=== PATIENT | female | born 1960 | race American Indian/Alaskan Native ===

== ENCOUNTER 2020-11-26 07:05 | Observation (INO) | payer MEDICARE ==
[2020-11-26] MEDS ORDERED: SODIUM CHLORIDE 0.9% 1000 ML 1,000 ML ONE (07:10)
--- NOTE | 2020-11-26 07:25 | Emergency Department Report ---
ED Chest Pain HPI - General Chief Complaint: Chest Pain Stated Complaint: SVT Time Seen by Provider: 11/26/20 07:20 Source: patient, EMS Mode of arrival: Stretcher Limitations: No Limitations - History of Present Illness Initial Comments: This is a 60-year-old -[place]ian female presents to the emergency department via EMS from home with complaint of chest pain and palpitations that started about 2 AM this morning. Ultimately the patient was found to be in SVT and the patient says that she has a history of this but it has not occurred in a few years. The patient waited for about 3 hours hoping that the symptoms would go away but they did not so she called EMS. The patient has been told that she may need an ablation in the past. She has a past medical history of Crohn's disease. She did not take anything for symptoms prior to presentation. At the time of my examination the patient is tachycardic with a heart rate of about 180. She has a complaint of generalized chest discomfort at about an 8 out of 10. She denies any tobacco or illicit drug use. EMS was unable to obtain IV access and therefore the patient did not receive anything for her symptoms in route. - Related Data Home Medications Medication Instructions Recorded Confirmed Last Taken No Known Home Medications [No 11/26/20 11/26/20 Unknown Reported Home Medications] Allergies Allergy/AdvReac Type Severity Reaction Status Date / Time ciprofloxacin [From Cipro] Allergy Unknown Verified 11/26/20 07:06 Heart Score - HEART Score History: Slightly suspicious EKG: Non-specific Age: 45-65 Risk factors: No known risk factors Troponin: 1-3x normal limit HEART Score: 3 ED Review of Systems ROS: Stated complaint: SVT Other details as noted in HPI Comment: All other systems reviewed and negative Constitutional: denies: chills, fever Eyes: denies: eye pain, vision change ENT: denies: ear pain, throat pain Respiratory: denies: cough, wheezing Cardiovascular: chest pain, palpitations Gastrointestinal: denies: abdominal pain, vomiting Genitourinary: denies: dysuria, discharge Musculoskeletal: denies: back pain, arthralgia Skin: denies: rash, lesions Neurological: denies: headache, weakness ED Past Medical Hx - Past Medical History Previous Medical History?: Yes Additional medical history: heart disease - Social History Smoking Status: Never Smoker - Medications Home Medications: Home Medications Medication Instructions Recorded Confirmed Last Taken Type No Known Home Medications [No 11/26/20 11/26/20 Unknown History Reported Home Medications] ED Physical Exam - General Limitations: No Limitations ED Course Vital Signs 11/26/20 11/26/20 11/26/20 07:25 07:29 07:30 Pulse Rate 91 H 91 H Respiratory 18 18 Rate Blood Pressure Blood Pressure 104/70 [Right] O2 Sat by Pulse 99 Oximetry 11/26/20 11/26/20 11/26/20 07:31 07:45 07:55 Pulse Rate 90 91 H 82 Respiratory 10 L 21 Rate Blood Pressure Blood Pressure [Right] O2 Sat by Pulse 100 98 Oximetry 11/26/20 11/26/20 11/26/20 08:00 08:16 08:30 Pulse Rate 88 88 78 Respiratory 15 19 17 Rate Blood Pressure 109/71 115/75 Blood Pressure [Right] O2 Sat by Pulse 98 96 98 Oximetry 11/26/20 11/26/20 11/26/20 08:48 09:00 09:16 Pulse Rate 76 68 Respiratory 13 13 Rate Blood Pressure 115/75 Blood Pressure [Right] O2 Sat by Pulse 100 100 100 Oximetry 11/26/20 11/26/20 11/26/20 09:30 09:34 09:46 Pulse Rate 80 81 68 Respiratory 15 18 16 Rate Blood Pressure 117/81 Blood Pressure 110/77 [Right] O2 Sat by Pulse 100 97 100 Oximetry 11/26/20 11/26/20 11/26/20 10:00 10:15 11:34 Pulse Rate 73 Respiratory 18 Rate Blood Pressure 109/73 Blood Pressure 116/75 [Right] O2 Sat by Pulse 100 90 100 Oximetry 11/26/20 12:08 Pulse Rate 74 Respiratory 18 Rate Blood Pressure Blood Pressure 93/73 [Right] O2 Sat by Pulse 98 Oximetry - Consultations Consultation #1: 11/26/20 11:[address] angiography of the chest showing a suspected occluded left in nominate vein, I spoke with the vascular surgeon on-call, Dr. Andino. Dr. Andino's note is currently in the chart for further detail but it appears to be consistent with a chronic occlusion as there are multiple collateral veins. The patient should be started on aspirin. If the patient is being discharged then the patient can follow-up with [facility] outpatient. If the patient is being admitted, they are happy to consult. No emergent intervention necessary. - EJ/Peripheral Line Arm R Time Out Performed: Yes Indications: nurses unable to establis Skin Cleansed in Sterile Fashion: Yes Size: 20 Dressing Placed: Tegaderm, tape Patient Tolerated Procedure: well RAJENDRA score - Rajendra Score Age > 65: (1) Yes Aspirin use within the Past 7 Days: (0) No 3 or more CAD Risk Factors: (0) No 2 or more Angina events in past 24 hrs: (1) Yes Known CAD with more than 50% Stenosis: (0) No Elevated Cardiac Markers: (1) Yes ST Deviation Greater than 0.5mm: (0) No RAJENDRA Score: 3 ED Medical Decision Making - Lab Data Result diagrams: 11/26/20 07:30 11/26/20 07:30 - EKG Data -: EKG Interpreted by Me EKG shows normal: sinus rhythm (SVT), axis (Right axis deviation), intervals (Slightly prolonged QTC), QRS complexes (RVH), ST-T waves (Nonspecific ST-T waves) Rate: tachycardia (179 bpm) - EKG Data When compared to previous EKG there are: previous EKG unavailable 11/26/20 07:25 EKG status post adenosine was also interpreted by me: Sinus rhythm at a rate of 93 bpm, right axis deviation, right bundle branch block, left posterior fascicular block. Normal intervals. - Radiology Data Radiology results: report reviewed, image reviewed interpreted by me: Chest x-ray does not show any acute process. There are no pleural effusions, obvious pneumonia and there is no pneumothorax. No significant cardiomegaly.CT angio chest INDICATION: CP, palpitations, SVT, elevated dimer. TECHNIQUE: All CT scans at this location are performed using CT dose reduction for ALARA by means of automated exposure control. 3 plane MIP and/or 3-D reconstructions were produced. COMPARISON: None available. FINDINGS: No mediastinal, hilar or axillary adenopathy. Uppermost abdomen is unremarkable. Port-A-Cath is in the right subclavian vein and SVC. The left innominate vein appears to be occluded, with numerous collaterals throughout the mediastinum and left chest wall. (Contrast injection was in the left arm) No pleural fluid. Mild bibasilar atelectasis but no acute pulmonary disease. No evidence of pulmonary embolus. IMPRESSION: 1. Negative for pulmonary embolus. 2. Suspect occlusion of the left innominate vein. CT venogram may be helpful to confirm. - Medical Decision Making This patient initially presented this morning in SVT with a heart rate of about 180. She converted to a sinus rhythm after given a 6 mg dose of adenosine. Even after the patient converted and had a normal heart rate, she still complained of some left-sided chest pain. It improved with IV analgesia but then would come back when the medication wore off. The EKG done after she converted from SVT still did not have any morphology consistent with ST elevation myocardial infarction. First troponin was negative. D-dimer level was elevated and therefore the patient had a CT angiography of the chest that did not show any evidence of pulmonary embolism, but did have an incidental finding of left innominate vein occlusion. As per the consultation section, vascular surgery was contacted and this appears to be a chronic finding. They were happy to consult if the patient is admitted, otherwise the patient can follow-up outpatient with [facility] [place]. The patient second troponin came back slightly elevated at 0.037. She will be admitted to the hospital for further evaluation and a cardiology consultation. It sounds like the patient will have a stress test in the morning. The patient was accepted for admission by the hospitalist, Dr. Duarte. Critical Care Time: Yes Critical care time in (mins) excluding proc time.: 35 Critical care attestation.: If time is entered above; I have spent that time in minutes in the direct care of this critically ill patient, excluding procedure time. Critical care time was spent on this patient in doing her initial evaluation, multiple reevaluations, ordering and interpretation of labs and imaging, adenosine for SVT, discussion with the vascular surgery and cardiology services, multiple discussions with the patient. Critical Care Time: 35 minutes ED Disposition Clinical Impression: SVT (supraventricular tachycardia), Acute chest pain, Elevated troponin, Brachiocephalic vein obstruction with collaterals Disposition: OP ADMIT IP TO THIS HOSP Is pt being admited?: Yes Condition: Serious Instructions: Chest Pain (ED) Referrals: VIKRAM LO MD [Staff Physician] - 7 Days ([place] office, 12/10/2020 @ 3:00PM) YISSEL OCONNOR MD [Referring] - 3-5 Days RAJIV ANDINO MD [Staff Physician] - 7-10 days (Follow up for chronic brachiocephalic vein occlusion)
[2020-11-26] MEDS ORDERED: MORPHINE 4 MG/1 ML INJ IV ONE ×2 (07:28→10:58)
[2020-11-26] MEDS ORDERED: ONDANSETRON 4 MG/2 ML INJ IV ONE (07:28)
[2020-11-26] MEDS ORDERED: SODIUM CHLORIDE 0.9% 1000 ML 1,000 ML IV ONE (07:29)
[2020-11-26] MEDS ORDERED: ADENOSINE 6 MG/2 ML INJ IV ONE ×2 (07:39→07:40)
[2020-11-26 07:42] LABS: Basophils % (Auto) 0.7 % (0.0-1.8); Eosinophils # (Auto) 0.1 K/mm3 (0.0-0.4); Eosinophils % (Auto) 2.2 % (0.0-4.3); Hemoglobin 10.7 gm/dl (10.1-14.3); Lymphocytes # (Auto) 1.1 K/mm3 (1.2-5.4); Lymphocytes % (Auto) 20.4 % (13.4-35.0); Mean Corpuscular HGB Conc 33 % (30-34); Mean Corpuscular Volume 80 fl (79-97); Monocytes # (Auto) 0.5 K/mm3 (0.0-0.8); Monocytes % (Auto) 8.9 % (0.0-7.3); Platelet Count 214 K/mm3 (140-440); Red Blood Count 4.11 M/mm3 (3.65-5.03); Red Cell Distribution Width 16.5 % (13.2-15.2)
[2020-11-26 08:00] LABS: Alanine Aminotransferase 11 units/L (7-56); Albumin 3.3 g/dL (3.9-5); BUN/Creatinine Ratio 16; Blood Urea Nitrogen 13 mg/dL (7-17); Calcium 8.4 mg/dL (8.4-10.2); Hemolysis Index 4
[2020-11-26] MEDS ORDERED: ADENOSINE 6 MG/2 ML INJ IV SCH ×2 (08:00)
--- NOTE | 2020-11-26 09:15 | XRay Report ---
CHEST 1 VIEW 11/26/2020 8:08 AM INDICATION / CLINICAL INFORMATION: CP. COMPARISON: None available. FINDINGS: SUPPORT DEVICES: Right Port-A-Cath in satisfactory position HEART / MEDIASTINUM: No significant abnormality. LUNGS / PLEURA: Mild increased interstitial process in the right perihilar region. No pneumothorax. ADDITIONAL FINDINGS: No significant additional findings. IMPRESSION: 1. Right Port-A-Cath in satisfactory in position. Mild increased perihilar prominence on the right ma y be vasculature. Please see CT images of the chest which has been ordered. Signer Name: Lucio Ojeda MD Signed: 11/26/2020 9:11 AM Workstation Name: [id number]
--- NOTE | 2020-11-26 09:25 | Cat Scan Report ---
CT angio chest INDICATION: CP, palpitations, SVT, elevated dimer. TECHNIQUE: All CT scans at this location are performed using CT dose reduction for ALARA by means of automated e xposure control. 3 plane MIP and/or 3-D reconstructions were produced. COMPARISON: None available. FINDINGS: No mediastinal, hilar or axillary adenopathy. Uppermost abdomen is unremarkable. Port-A-Cath is in the right subclavian vein and SVC. The left innominate vein appears to be occluded, with numerous collaterals throughout the mediastinum and left chest wall. (Contrast injection was in the left arm) No pleural fluid. Mild bibasilar atelectasis but no acute pulmonary disease. No evidence of pulmonary embolus. IMPRESSION: 1. Negative for pulmonary embolus. 2. Suspect occlusion of the left innominate vein. CT venogram may be helpful to confirm. Signer Name: Dionisio Caba MD Signed: 11/26/2020 9:21 AM Workstation Name: [id number]
--- NOTE | 2020-11-26 11:26 | Event Note ---
Date: 11/26/20 60 year old female with Crohn's disease who had SVT requiring adenosine. CT PA ordered to exclude pulmonary embolism. 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 These are chronic findings. No head and neck swelling, or severe headache. No symptoms of SVC syndrom. Patient can followup with [facility] at [phone] and be placed on an aspirin in the interim.
[2020-11-26] MEDS ORDERED: ASPIRIN 81 MG TAB CHEW PO ONE (11:54)
[2020-11-26 12:25] LABS: Chol/HDL Ratio 2.41 %
--- NOTE | 2020-11-26 13:09 | Consultation ---
History of Present Illness Consult date: 11/26/20 Requesting physician: PATRICIA MERIDA Consult reason: chest pain, tachycardia History of present illness: The pt is a 60YO female with a past medical history of SVT and Crohn's disease. She is previously unknown to our practice. She presented with c/o palpitations which awoke her from sleep around 2AM this morning. She waited for about 3 hours at home hoping her symptoms would resolve but ultimately called EMS. She was f ound to be in SVT HR 180s. Following arrival to ED, she was given adenosine 6mg x 1 dose and was successfully converted to NSR. She remains in NSR on evaluation with HR 60s. Pt states that she developed chest pain after the SVT was resolved. She describes her chest pain as a left-sided aching pain which radiates into her left shoulder. Pt denies any SOB, n/v, diaphoresis, dizziness or syncope. Of note, pt reports h/o paroxysmal SVT which was initially diagnosed 7-8 years ago. Pt states that she has not had any regular follow up with a advance scout and does not take any medications at home. She states that she was hospitalized in [facility] 4 years ago and was recommended SVT ablation at that time. Her last know occurrence of SVT was 2 years ago in [place], she is now permanently relocated to [place]. Past History Past Medical History: other (as per HPI) Medications and Allergies Allergies Allergy/AdvReac Type Severity Reaction Status Date / Time ciprofloxacin [From Cipro] Allergy Unknown Verified 11/26/20 07:06 Home Medications Medication Instructions Recorded Confirmed Last Taken Type No Known Home Medications [No 11/26/20 11/26/20 Unknown History Reported Home Medications] Review of Systems Constitutional: no weight loss, no weight gain, no fever, no chills, no sweats Ears, nose, mouth and throat: no ear pain, no nose pain, no sinus pressure, no sinus pain Cardiovascular: chest pain, palpitations, rapid/irregular heart beat, no orthopnea, no edema, no syncope, no lightheadedness, no shortness of breath, no dyspnea on exertion, no high blood pressure, no leg edema Respiratory: no cough, no shortness of breath, no dyspnea on exertion, no congestion, no wheezing, no pain on inspiration Gastrointestinal: no abdominal pain, no nausea, no vomiting, no diarrhea, no constipation, no change in bowel habits Genitourinary Female: no pelvic pain, no flank pain, no dysuria, no urinary frequency, no urgency Musculoskeletal: no neck stiffness, no neck pain, no shooting arm pain, no arm numbness/tingling, no low back pain, no shooting leg pain Integumentary: no rash, no pruritis, no redness, no sores, no wounds Neurological: no head injury, no paralysis, no weakness, no parathesias, no numbness, no tingling, no seizures, no syncope Psychiatric: no anxiety Endocrine: no cold intolerance, no heat intolerance Hematologic/Lymphatic: no easy bruising Allergic/Immunologic: no urticaria Physical Examination Vital Signs Pulse 91 H 11/26/20 07:25 General appearance: no acute distress HEENT: Positive: PERRL, Normocephaly, Mucus Membranes Moist Neck: Positive: neck supple, trachea midline Cardiac: Positive: Reg Rate and Rhythm, S1/S2 Lungs: Positive: clear to auscultation Neuro: Positive: Grossly Intact Abdomen: Negative: Tender Skin: Negative: Rash Musculoskeletal: No Pain Extremities: Absent: edema Results 11/26/20 07:30 11/26/20 07:30 Cardiac Enzymes 11/26/20 Range/Units 07:30 AST 16 (5-40) units/L Lipids 11/26/20 Range/Units 10:55 Triglycerides 141 (2-149) mg/dL Cholesterol 128 (50-199) mg/dL HDL Cholesterol 53 (40-59) mg/dL Cholesterol/HDL Ratio 2.41 % CBC 11/26/20 Range/Units 07:30 WBC 5.3 (4.5-11.0) K/mm3 RBC 4.11 (3.65-5.03) M/mm3 Hgb 10.7 (10.1-14.3) gm/dl Hct 33.0 (30.3-42.9) % Plt Count 214 (140-440) K/mm3 Lymph # (Auto) 1.1 L (1.2-5.4) K/mm3 [place] # (Auto) 0.5 (0.0-0.8) K/mm3 Eos # (Auto) 0.1 (0.0-0.4) K/mm3 Baso # (Auto) 0.0 (0.0-0.1) K/mm3 Comprehensive Metabolic Panel 11/26/20 Range/Units 07:30 Sodium 140 (137-145) mmol/L Potassium 3.6 (3.6-5.0) mmol/L Chloride 108.9 H (98-107) mmol/L Carbon Dioxide 23 (22-30) mmol/L BUN 13 (7-17) mg/dL Creatinine 0.8 (0.6-1.2) mg/dL Glucose 110 H (65-100) mg/dL Calcium 8.4 (8.4-10.2) mg/dL AST 16 (5-40) units/L ALT 11 (7-56) units/L Alkaline Phosphatase 95 (35-129) units/L Total Protein 6.5 (6.3-8.2) g/dL Albumin 3.3 L (3.9-5) g/dL - Imaging and Cardiology Echo: pending EKG: report reviewed, image reviewed EKG interpretations - Telemetry EKG Rhythm: Sinus Rhythm Additional Comments: SVT Assessment and Plan Initiate PO lopressor in setting of paroxysmal SVT. Minimal troponin elevation x 1 set currently appears nonspecific and chest pain appears atypical. Cont to trend Ghulam and f/u ECG in AM. Obtain tte. Plan for lexiscan MPI stress test in AM. NPO after MN. Chest CTA negative for PE, incidental vasculature finding noted, vascular recs noted. The patient has been seen in conjunction with Dr. Wade who agrees with the assessment and plan of care. - Patient Problems (1) Paroxysmal SVT (supraventricular tachycardia) Current Visit: Yes Status: Chronic (2) Acute chest pain Current Visit: Yes Status: Acute (3) Elevated troponin Current Visit: Yes Status: Acute (4) Crohn's disease Current Visit: Yes Status: Chronic
[2020-11-26] MEDS ORDERED: METOPROLOL TARTRATE 50 MG TAB PO SCH (22:00)
--- NOTE | 2020-11-26 23:32 | History and Physical Report ---
History of Present Illness Date of examination: 11/26/20 Date of admission: 11/26/20 12:01 Chief complaint: Chest pain since a.m. History of present illness: 51-year-old -[place] female presents to the emergency room with complaints of chest pain and palpitations that started around 2 AM this morning. Patient thought it to resolve and did not call EMS for 3 hours. She called EMS around 5:30 AM. EMS gave her diagnosis and will palpitations diarrhea. As per EMS her heart rate was around 180 and after 6 mg of diagnosing her heart rate became normal. She also has a history of Crohn's disease which is not active. Patient also has chest pain. No diaphoresis no shortness of breath no orthopnea no radiation. Fast heart rate was a precipitating factor for the chest pain. Serial chest x-rays in the past 3 but she did not get ablation and recently [place] to [place] to settle down. Heart Score - HEART Score History: Slightly suspicious EKG: Non-specific Age: 45-65 Risk factors: No known risk factors Troponin: 1-3x normal limit HEART Score: 3 - Past Medical History Previous Medical History?: Yes Recurrent SVT Surgical history None - Social History Smoking Status: Never Smoker Family history Htn - Medications Home Medications: Home Medications Medication Instructions Recorded Confirmed Last Taken Type No Known Home Medications [No 11/26/20 11/26/20 Unknown History Reported Home Medications] Review of Systems ROS: Stated complaint: SVT Other details as noted in HPI Comment: All other systems reviewed and negative Constitutional: denies: chills, fever Eyes: denies: eye pain, vision change ENT: denies: ear pain, throat pain Respiratory: denies: cough, wheezing Cardiovascular: chest pain, palpitations Gastrointestinal: denies: abdominal pain, vomiting Genitourinary: denies: dysuria, discharge Musculoskeletal: denies: back pain, arthralgia Skin: denies: rash, lesions Neurological: denies: headache, weakness Past History Past Medical History: other (as per HPI) Medications and Allergies Allergies Allergy/AdvReac Type Severity Reaction Status Date / Time ciprofloxacin [From Cipro] Allergy Unknown Verified 11/26/20 07:06 Home Medications Medication Instructions Recorded Confirmed Last Taken Type No Known Home Medications [No 11/26/20 11/26/20 Unknown History Reported Home Medications] Active Meds: Active Medications Metoprolol Tartrate (Metoprolol Tartrate 50 Mg Tab) 25 mg PO BID FERNANDO Last Admin: 11/26/20 21:41 Dose: 25 mg Documented by: Exam - Constitutional Vitals: Temp Pulse Resp BP Pulse Ox 98.4 F 76 18 108/60 99 11/26/20 20:10 11/26/20 21:41 11/26/20 20:10 11/26/20 21:41 11/26/20 20:10 General appearance: Present: no acute distress, well-nourished - EENT Eyes: Present: PERRL ENT: hearing intact, clear oral mucosa - Neck Neck: Present: supple, normal ROM - Respiratory Respiratory effort: normal Respiratory: bilateral: CTA - Cardiovascular Heart rate: 75 Rhythm: regular Heart Sounds: Present: S1 & S2. Absent: rub, click - Extremities Extremities: pulses symmetrical, No edema Peripheral Pulses: within normal limits - Abdominal General gastrointestinal: Present: soft, non-tender, non-distended, normal bowel sounds Female genitourinary: Present: normal - Integumentary Integumentary: Present: clear, warm, dry - Musculoskeletal Musculoskeletal: gait normal, strength equal bilaterally - Psychiatric Psychiatric: appropriate mood/affect, intact judgment & insight - Neurologic Neurologic: CNII-XII intact, moves all extremities HEART Score - HEART Score EKG: Non-specific Age: 45-65 Risk factors: No known risk factors Troponin: Troponin T 0.031 ng/mL (0.00-0.029) H 11/26/20 13:42 Troponin: 1-3x normal limit Results - Labs CBC & Chem 7: 11/26/20 07:30 11/26/20 07:30 Labs: Laboratory Last Values WBC 5.3 K/mm3 (4.5-11.0) 11/26/20 07:30 RBC 4.11 M/mm3 (3.65-5.03) 11/26/20 07:30 Hgb 10.7 gm/dl (10.1-14.3) 11/26/20 07:30 Hct 33.0 % (30.3-42.9) 11/26/20 07:30 MCV 80 fl (79-97) 11/26/20 07:30 MCH 26 pg (28-32) L 11/26/20 07:30 MCHC 33 % (30-34) 11/26/20 07:30 RDW 16.5 % (13.2-15.2) H 11/26/20 07:30 Plt Count 214 K/mm3 (140-440) 11/26/20 07:30 Lymph % (Auto) 20.4 % (13.4-35.0) 11/26/20 07:30 [place] % (Auto) 8.9 % (0.0-7.3) H 11/26/20 07:30 Eos % (Auto) 2.2 % (0.0-4.3) 11/26/20 07:30 Baso % (Auto) 0.7 % (0.0-1.8) 11/26/20 07:30 Lymph # (Auto) 1.1 K/mm3 (1.2-5.4) L 11/26/20 07:30 [place] # (Auto) 0.5 K/mm3 (0.0-0.8) 11/26/20 07:30 Eos # (Auto) 0.1 K/mm3 (0.0-0.4) 11/26/20 07:30 Baso # (Auto) 0.0 K/mm3 (0.0-0.1) 11/26/20 07:30 Seg Neutrophils % 67.8 % (40.0-70.0) 11/26/20 07:30 Seg Neutrophils # 3.6 K/mm3 (1.8-7.7) 11/26/20 07:30 D-Dimer 543.5 ng/mlDDU (0-234) H 11/26/20 07:30 Sodium 140 mmol/L (137-145) 11/26/20 07:30 Potassium 3.6 mmol/L (3.6-5.0) 11/26/20 07:30 Chloride 108.9 mmol/L (98-107) H 11/26/20 07:30 Carbon Dioxide 23 mmol/L (22-30) 11/26/20 07:30 Anion Gap 12 mmol/L 11/26/20 07:30 BUN 13 mg/dL (7-17) 11/26/20 07:30 Creatinine 0.8 mg/dL (0.6-1.2) 11/26/20 07:30 Estimated GFR > 60 ml/min 11/26/20 07:30 BUN/Creatinine Ratio 16 % 11/26/20 07:30 Glucose 110 mg/dL (65-100) H 11/26/20 07:30 Calcium 8.4 mg/dL (8.4-10.2) 11/26/20 07:30 Total Bilirubin 0.30 mg/dL (0.1-1.2) 11/26/20 07:30 AST 16 units/L (5-40) 11/26/20 07:30 ALT 11 units/L (7-56) 11/26/20 07:30 Alkaline Phosphatase 95 units/L (35-129) 11/26/20 07:30 Troponin T 0.031 ng/mL (0.00-0.029) H 11/26/20 13:42 Total Protein 6.5 g/dL (6.3-8.2) 11/26/20 07:30 Albumin 3.3 g/dL (3.9-5) L 11/26/20 07:30 Albumin/Globulin Ratio 1.0 % 11/26/20 07:30 Triglycerides 141 mg/dL (2-149) 11/26/20 10:55 Cholesterol 128 mg/dL (50-199) 11/26/20 10:55 LDL Cholesterol Direct 68 mg/dL (50-130) 11/26/20 10:55 HDL Cholesterol 53 mg/dL (40-59) 11/26/20 10:55 Cholesterol/HDL Ratio 2.41 % 11/26/20 10:55 TSH 0.836 mlU/mL (0.270-4.200) 11/26/20 07:30 Short CBC 11/26/20 Range/Units 07:30 WBC 5.3 (4.5-11.0) K/mm3 Hgb 10.7 (10.1-14.3) gm/dl Hct 33.0 (30.3-42.9) % Plt Count 214 (140-440) K/mm3 BMP 11/26/20 07:30 Sodium 140 Potassium 3.6 Chloride 108.9 H Carbon Dioxide 23 BUN 13 Creatinine 0.8 Glucose 110 H Calcium 8.4 Cardiac Enzymes 11/26/20 11/26/20 11/26/20 Range/Units 07:30 10:55 13:42 Troponin T < 0.010 0.037 H D 0.031 H (0.00-0.029) ng/mL Liver Function 11/26/20 Range/Units 07:30 Total Bilirubin 0.30 (0.1-1.2) mg/dL AST 16 (5-40) units/L ALT 11 (7-56) units/L Alkaline Phosphatase 95 (35-129) units/L Albumin 3.3 L (3.9-5) g/dL - Imaging and Cardiology EKG: report reviewed (Normal sinus rhythm heart rate of 74/min, previous strip shows SVT) Bansal/IV: Voiding Method Toilet Assessment and Plan Advance Directives: Yes - Patient Problems (1) Acute coronary syndrome Current Visit: Yes Status: Acute Plan to address problem: Serial troponins and Lexiscan in the morning Cardiology consult also requested (2) SVT (supraventricular tachycardia) Current Visit: Yes Status: Acute Plan to address problem: Resolved with admission Patient started on low-dose diltiazem Cardiology consult for possible ablation down the road as an outpatient EPS mapping for aberrant conduction pathways (3) 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
[2020-11-26] MEDS ORDERED: ONDANSETRON 4 MG/2 ML INJ IV PRN (23:33)
[2020-11-26] MEDS ORDERED: ACETAMINOPHEN 325 MG TAB PO PRN (23:33)
[2020-11-26] MEDS ORDERED: METOCLOPRAMIDE 10 MG/2 ML INJ IV PRN (23:33)
[2020-11-26] MEDS ORDERED: oxyCODONE /ACETAMINOPHEN 5-325MG TAB PO PRN (23:33)
[2020-11-27] MEDS: HYDROmorphone 1 MG/1 ML INJ IV PRN ×2 (00:38→10:26)
[2020-11-27] MEDS ORDERED: REGADENOSON 0.4 MG/5 ML INJ IV ONE (06:55)
--- NOTE | 2020-11-27 08:01 | Progress Note ---
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 WYLIE as an outpatient -Disposition as per cardiology Discussed with Dr. Wade and he said patient can be discharged home on Toprol 25 mg and have follow-up with Dr. Avilez as an outpatient. History Interval history: Patient was seen and evaluated this morning Patient's chest pain resolved No palpitation Hospitalist Physical - Physical exam Narrative exam: Not in cardiopulmonary distress. The patient appeared well nourished and normally developed. Vital signs as documented. Head exam is unremarkable. No scleral icterus . Neck is without jugular venous distension, thyromegaly, or carotid bruits. Lungs are clear to auscultation. Cardiac exam reveals regular rate and Rhythm. Abdominal exam reveals normal bowel sounds, nontender, no organomegaly. Extremities are nonedematous and both femoral and pedal pulses are normal. NEWSPAPER STUFFER: Alert and oriented 3. No focal weakness. - Constitutional Vitals: Temp Pulse Resp BP Pulse Ox 97.9 F 57 L 17 104/56 98 11/27/20 04:17 11/27/20 04:17 11/27/20 04:17 11/27/20 04:17 11/27/20 04:17 General appearance: Present: no acute distress, well-nourished HEART Score - HEART Score EKG: Non-specific Age: 45-65 Risk factors: No known risk factors Troponin: Troponin T 0.031 ng/mL (0.00-0.029) H 11/26/20 13:42 Troponin: 1-3x normal limit Results - Labs CBC & Chem 7: 11/26/20 07:30 11/26/20 07:30 Labs: Laboratory Last Values WBC 5.3 K/mm3 (4.5-11.0) 11/26/20 07:30 RBC 4.11 M/mm3 (3.65-5.03) 11/26/20 07:30 Hgb 10.7 gm/dl (10.1-14.3) 11/26/20 07:30 Hct 33.0 % (30.3-42.9) 11/26/20 07:30 MCV 80 fl (79-97) 11/26/20 07:30 MCH 26 pg (28-32) L 11/26/20 07:30 MCHC 33 % (30-34) 11/26/20 07:30 RDW 16.5 % (13.2-15.2) H 11/26/20 07:30 Plt Count 214 K/mm3 (140-440) 11/26/20 07:30 Lymph % (Auto) 20.4 % (13.4-35.0) 11/26/20 07:30 Gillespie % (Auto) 8.9 % (0.0-7.3) H 11/26/20 07:30 Eos % (Auto) 2.2 % (0.0-4.3) 11/26/20 07:30 Baso % (Auto) 0.7 % (0.0-1.8) 11/26/20 07:30 Lymph # (Auto) 1.1 K/mm3 (1.2-5.4) L 11/26/20 07:30 Gillespie # (Auto) 0.5 K/mm3 (0.0-0.8) 11/26/20 07:30 Eos # (Auto) 0.1 K/mm3 (0.0-0.4) 11/26/20 07:30 Baso # (Auto) 0.0 K/mm3 (0.0-0.1) 11/26/20 07:30 Seg Neutrophils % 67.8 % (40.0-70.0) 11/26/20 07:30 Seg Neutrophils # 3.6 K/mm3 (1.8-7.7) 11/26/20 07:30 D-Dimer 543.5 ng/mlDDU (0-234) H 11/26/20 07:30 Sodium 140 mmol/L (137-145) 11/26/20 07:30 Potassium 3.6 mmol/L (3.6-5.0) 11/26/20 07:30 Chloride 108.9 mmol/L (98-107) H 11/26/20 07:30 Carbon Dioxide 23 mmol/L (22-30) 11/26/20 07:30 Anion Gap 12 mmol/L 11/26/20 07:30 BUN 13 mg/dL (7-17) 11/26/20 07:30 Creatinine 0.8 mg/dL (0.6-1.2) 11/26/20 07:30 Estimated GFR > 60 ml/min 11/26/20 07:30 BUN/Creatinine Ratio 16 % 11/26/20 07:30 Glucose 110 mg/dL (65-100) H 11/26/20 07:30 Hemoglobin A1c 5.4 % (4-6) 11/27/20 05:45 Calcium 8.4 mg/dL (8.4-10.2) 11/26/20 07:30 Total Bilirubin 0.30 mg/dL (0.1-1.2) 11/26/20 07:30 AST 16 units/L (5-40) 11/26/20 07:30 ALT 11 units/L (7-56) 11/26/20 07:30 Alkaline Phosphatase 95 units/L (35-129) 11/26/20 07:30 Troponin T 0.031 ng/mL (0.00-0.029) H 11/26/20 13:42 Total Protein 6.5 g/dL (6.3-8.2) 11/26/20 07:30 Albumin 3.3 g/dL (3.9-5) L 11/26/20 07:30 Albumin/Globulin Ratio 1.0 % 11/26/20 07:30 Triglycerides 141 mg/dL (2-149) 11/26/20 10:55 Cholesterol 128 mg/dL (50-199) 11/26/20 10:55 LDL Cholesterol Direct 68 mg/dL (50-130) 11/26/20 10:55 HDL Cholesterol 53 mg/dL (40-59) 11/26/20 10:55 Cholesterol/HDL Ratio 2.41 % 11/26/20 10:55 TSH 0.836 mlU/mL (0.270-4.200) 11/26/20 07:30 Bansal/IV: Voiding Method Toilet Active Medications - Current Medications Current Medications: Generic Name Dose Route Start Last Admin Trade Name Freq PRN Reason Stop Dose Admin Acetaminophen 650 mg 11/26/20 23:33 Acetaminophen 325 Mg Tab PO Q4H PRN Pain MILD(1-3)/Fever >100.5/VALIENTE Enoxaparin Sodium 40 mg 11/27/20 22:00 Enoxaparin 40 Mg/0.4 Ml Inj SUB-Q QDAY@2200 [facility] Protocol Famotidine 20 mg 11/27/20 10:00 Famotidine 20 Mg Tab PO BID [facility] Hydromorphone HCl 0.5 mg 11/26/20 23:33 11/27/20 00:38 Hydromorphone 1 Mg/1 Ml Inj IV 0.5 mg Q3H PRN Administration Pain , Severe (7-10) Metoclopramide HCl 10 mg 11/26/20 23:33 Metoclopramide 10 Mg/2 Ml Inj IV Q6H PRN Nausea And Vomiting Metoprolol Tartrate 25 mg 11/27/20 10:00 Metoprolol Tartrate 25 Mg Tab PO BID [facility] Ondansetron HCl 4 mg 11/26/20 23:33 Ondansetron 4 Mg/2 Ml Inj IV Q8H PRN Nausea And Vomiting Oxycodone/Acetaminophen 1 tab 11/26/20 23:33 Oxycodone /Acetaminophen 5-325mg Tab PO Q6H PRN Pain, Moderate (4-6) Sodium Chloride 10 ml 11/27/20 10:00 Sodium Chloride 0.9% 10 Ml Flush Syringe IV BID [facility] Sodium Chloride 10 ml 11/26/20 23:33 Sodium Chloride 0.9% 10 Ml Flush Syringe IV PRN PRN LINE FLUSH
[2020-11-27] MEDS ORDERED: FAMOTIDINE 20 MG TAB PO SCH (10:00)
[2020-11-27] MEDS ORDERED: METOPROLOL TARTRATE 25 MG TAB PO SCH (10:00)
--- NOTE | 2020-11-27 10:11 | Discharge Summary ---
Providers - Providers Date of Admission: 11/26/20 12:01 Date of discharge: 11/27/20 Attending physician: ISAAC MAGANA MD 11/26/20 11:53 Consult to Cardiology [CONS] Routine Consulting Provider: ARIN WADE Reason For Exam: chest pain, SVT, elevated troponin Hospitalization Reason for admission: palpitation, paroxysmal SVT Condition: Serious Hospital course: History of present illness: 51-year-old -[place] female presents to the emergency room with complaints of chest pain and palpitations that started around 2 AM this morning. Patient thought it to resolve and did not call EMS for 3 hours. She called EMS around 5:30 AM. EMS gave her diagnosis and will palpitations diarrhea. As per EMS her heart rate was around 180 and after 6 mg of diagnosing her heart rate became normal. She also has a history of Crohn's disease which is not active. Patient also has chest pain. No diaphoresis no shortness of breath no orthopnea no radiation. Fast heart rate was a precipitating factor for the chest pain. Serial chest x-rays in the past 3 but she did not get ablation and recently moved to [place] to settle down. 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 WYLIE as an outpatient -Disposition as per cardiology Discussed with Dr. Wade and he said patient can be discharged home on Toprol 25 mg and have follow-up with Dr. Lo as an outpatient. Disposition: DC-01 TO HOME OR SELFCARE Time spent for discharge: 27 minutes - Discharge Diagnoses (1) Acute chest pain Status: Resolved (2) Brachiocephalic vein obstruction with collaterals Status: Chronic (3) Crohn's disease Status: Chronic Qualifiers: Gastrointestinal tract location: unspecified location (4) Paroxysmal SVT (supraventricular tachycardia) Status: Chronic Core Measure Documentation - Palliative Care Palliative Care/ Comfort Measures: Not Applicable - Core Measures Any of the following diagnoses?: none Exam - Physical Exam Narrative exam: Not in cardiopulmonary distress. The patient appeared well nourished and normally developed. Vital signs as documented. Head exam is unremarkable. No scleral icterus . Neck is without jugular venous distension, thyromegaly, or carotid bruits. Lungs are clear to auscultation. Cardiac exam reveals regular rate and Rhythm. Abdominal exam reveals normal bowel sounds, nontender, no organomegaly. Extremities are nonedematous and both femoral and pedal pulses are normal. INTERDISCIPLINARY PROFESSOR: Alert and oriented 3. No focal weakness. - Constitutional Vitals: Temp Pulse Resp BP Pulse Ox 97.9 F 57 L 17 104/56 98 11/27/20 04:17 11/27/20 04:17 11/27/20 04:17 11/27/20 04:17 11/27/20 04:17 Plan Activity: no restrictions Weight Bearing Status: Full Weight Bearing Diet: low cholesterol Follow up with: RAJIV ANDINO MD [Staff Physician] - 7-10 days (Follow up for chronic brachiocephalic vein occlusion) VIKRAM LO MD [Staff Physician] - 7 Days ([place] office, 12/10/2020 @ 3:00PM) PRIMARY CARE, [Referring] - 3-5 Days Prescriptions: Metoprolol Succinate [Toprol Xl] 25 mg PO DAILY #30 tab.er.24h
--- NOTE | 2020-11-27 10:52 | Treadmill Report ---
CARDIAC NUCLEAR PERFUSION STUDY READING PHYSICIAN: Dr. Wade. REASON FOR STUDY: Abnormal troponin. IMAGING PROTOCOL: Single isotope used documented as single isotope protocol. IMAGING RESULTS: Normal cavity size from stress to rest. Normal distribution of radionuclide in the anterior, inferior, septal, and apical regions. Gated SPECT, EF greater than 65% with no wall motion abnormality. The patient infused Lexiscan with no EKG changes. SUMMARY: 1. Negative Lexiscan EKG. 2. Normal rest and stress myocardial perfusion scan. No significant stress ischemia. No wall motion abnormality. Gated SPECT, EF of greater than 65%. JOB# [id number] VRM/NTS
--- NOTE | 2020-11-27 11:06 | Progress Note ---
Assessment and Plan Pt is maintaining NSR, no acute events overnight. tte reviewed - EF 55-60%, trace MR and TR. S/p lexiscan MPI stress test today which was negative. Currently stable cardiac status. Cont present cardiac management, including PO lopressor. Pt may discharge from cardiology standpoint. Follow up in our [place] office with Dr. Avilez for EP consultation (? SVT ablation) on 12/10/2020 @ 3:00PM. The patient has been seen in conjunction with Dr. Wade who agrees with the assessment and plan of care. - Patient Problems (1) Paroxysmal SVT (supraventricular tachycardia) Current Visit: Yes Status: Chronic (2) Acute chest pain Current Visit: Yes Status: Resolved (3) Elevated troponin Current Visit: Yes Status: Acute Plan to address problem: nonspecific (4) Crohn's disease Current Visit: Yes Status: Chronic Qualifiers: Gastrointestinal tract location: unspecified location Subjective Date of service: 11/27/20 Principal diagnosis: SVT Interval history: pt resting in bed, no current cardiac complaints. for stress test today. tele reviewed - in SR with no acute events overnight. Objective Last Vital Signs Temp 97.2 F L 11/27/20 10:05 Pulse 73 11/27/20 10:27 Resp 18 11/27/20 10:05 BP 120/61 11/27/20 10:27 Pulse Ox 100 11/27/20 10:05 - Physical Examination General: No Apparent Distress HEENT: Positive: PERRL, Normocephaly, Mucus Membranes Moist Neck: Positive: neck supple, trachea midline Cardiac: Positive: Reg Rate and Rhythm, S1/S2 Lungs: Positive: Decreased Breath Sounds Neuro: Positive: Grossly Intact Abdomen: Negative: Tender Skin: Negative: Rash Musculoskeletal: No Pain Extremities: Absent: edema - Labs and Meds Lipids 11/26/20 Range/Units 10:55 Triglycerides 141 (2-149) mg/dL Cholesterol 128 (50-199) mg/dL HDL Cholesterol 53 (40-59) mg/dL Cholesterol/HDL Ratio 2.41 % - Imaging and Cardiology EKG: report reviewed (Normal sinus rhythm heart rate of 74/min, previous strip shows SVT) Echo: report reviewed - Telemetry EKG Rhythm: Sinus Rhythm
[2020-11-27 12:42] VITALS: BP 109/60
[2020-11-27] MEDS ORDERED: ENOXAPARIN 40 MG/0.4 ML INJ SUB-Q SCH (22:00)
== END 2020-11-27 14:52 | disposition home or self-care (01) ==
LOC: ED 07:05 → 4A 12:01
PROVIDERS: ADMIT Internal Medicine; ATTEND Internal Medicine
DX: I47.1 Supraventricular tachycardia (principal); R77.8 Other specified abnormalities of plasma proteins; R07.9 Chest pain, unspecified; I24.9 Acute ischemic heart disease, unspecified; I87.1 Compression of vein; K50.90 Crohn's disease, unspecified, without complications; Z79.899 Other long term (current) drug therapy
CPT/HCPCS: 36415; 71045; 71275; 78452; 80053; 80061; 83036; 84443; 84484; 85025; 85379; 93005; 93017; 93306; 96361; 96374; 96375; 96376; 99291; A9502; G0378; J1170; J2270; J2405; J2785; J7030; Q9967

== ENCOUNTER 2022-02-26 09:51 | Emergency (ER) | payer MEDICARE ==
[2022-02-26] MEDS ORDERED: ONDANSETRON 4 MG/2 ML INJ IV ONE (13:48)
[2022-02-26] MEDS ORDERED: MORPHINE 4 MG/1 ML INJ IV ONE (13:48)
[2022-02-26 14:12] VITALS: BP 130/85
--- NOTE | 2022-02-26 14:42 | Cat Scan Report ---
CT ABDOMEN AND PELVIS WITHOUT CONTRAST INDICATION / CLINICAL INFORMATION: abdominal pain, hx crohn's dz. TECHNIQUE: Axial CT images were obtained through the abdomen and pelvis without IV contrast. All CT scans at this location are performed using CT dose reduction for ALARA by means of automated exposure control. COMPARISON: None available. FINDINGS: LOWER CHEST: No significant abnormality of the imaged chest. LIVER: No focal lesion. No acute findings. GALLBLADDER: Cholelithiasis without CT evidence of cholecystitis. BILE DUCTS: Not well visualized SPLEEN: No significant abnormality. PANCREAS: No significant abnormality. ADRENALS: No significant abnormality. KIDNEYS/URETERS: No stones or hydronephrosis. No solid renal lesion. STOMACH / DUODENUM / SMALL BOWEL: The stomach, duodenum, and small bowel demonstrate no significant a bnormality. No specific abnormality of the mesentery demonstrated. Ileostomy right lower quadrant. COLON: Prior colon resection with pelvic rectal anastomosis. APPENDIX: Absent PERITONEUM: No free air or free fluid are present within the abdomen or pelvis. LYMPH NODES: No significant adenopathy. AORTA / ARTERIES: No significant abnormality. IVC / VEINS: No significant abnormality. URINARY BLADDER: No significant abnormality. REPRODUCTIVE ORGANS: Uterus is absent. No significant adnexal abnormality. ADDITIONAL ABDOMINAL/PELVIC FINDINGS: None. SKELETAL SYSTEM: Osteopenia. Multilevel facet arthropathy mid and lower lumbar spine. Grade 1 anterol isthesis of L3 on L4. IMPRESSION: 1. No specific evidence of bowel obstruction. No acute intra-abdominal/intrapelvic pathology. Signer Name: Abdirizak Martinez II, MD Signed: 02/26/2022 2:38 PM Workstation Name: [id number]
[2022-02-26 14:55] LABS: Bilirubin,Urine NEG (Negative); Blood,Urine NEG (Negative); Color,Urine Yellow (Yellow); Urobilinogen,Urine < 2.0 mg/dL (<2.0)
[2022-02-26 14:59] LABS: Hematocrit 31.9 % (30.3-42.9); Hemoglobin 10.1 gm/dl (10.1-14.3); Mean Corpuscular HGB Conc 32 % (30-34); Mean Corpuscular Volume 81 fl (79-97); Platelet Count 244 K/mm3 (140-440); Red Blood Count 3.92 M/mm3 (3.65-5.03); Red Cell Distribution Width 18.5 % (13.2-15.2)
[2022-02-26] MEDS ORDERED: MORPHINE 4 MG/1 ML INJ IM ONE (15:07)
[2022-02-26 15:11] LABS: RBC,Urine < 1.0 /HPF (0.0-6.0); WBC,Urine < 1.0 /HPF (0.0-6.0)
[2022-02-26 15:24] LABS: Bacteria,Urine 1+ /HPF (Negative); Mucus,Urine 3+ /HPF
[2022-02-26 15:26] LABS: Alanine Aminotransferase 10 units/L (7-56); Albumin 3.9 g/dL (3.9-5); BUN/Creatinine Ratio 14; Blood Urea Nitrogen 14 mg/dL (7-17); Calcium 9.2 mg/dL (8.4-10.2); Hemolysis Index 10
--- NOTE | 2022-02-26 15:55 | Emergency Department Report ---
ED Abdominal Pain HPI - General Chief Complaint: Abdominal Pain Stated Complaint: ABD PAIN/VOMITING Time Seen by Provider: 02/26/22 13:46 Source: patient Mode of arrival: Ambulatory Limitations: No Limitations - History of Present Illness Initial Comments: 61-year-old black female with a past medical history of Crohn's disease and SVT presents to the emergency department for evaluation of 1 week history of abdominal pain with nausea, vomiting, and diarrhea. She states that about a month ago she was diagnosed with acute pancreatitis but states that pain got better but 1 week ago she started to have pain again which has gotten progressively worse. She states that she has also had intermittent fever and dysuria. She denies any vaginal discharge. She states that pain is 8 out of 10 and has become persistent. MD Complaint: abdominal pain -: Gradual, week(s) (1) Location: diffuse Radiation: none Migration to: no migration Severity: severe Severity scale (0 -10): 9 Quality: aching Consistency: intermittent Associated Symptoms: nausea, vomiting, diarrhea, fever, dysuria. denies: chills, hematemesis, hematochezia, melena, hematuria, anorexia, syncope - Related Data Previous Rx's Medication Instructions Recorded Last Taken Type Metoprolol Succinate [Toprol Xl] 25 mg PO DAILY #30 tab.er.24h 11/27/20 Unknown Rx Acetaminophen/Codeine [Tylenol 1 tab PO Q6H PRN #12 tab 02/26/22 Unknown Rx /Codeine # 3 tab] Ondansetron [Zofran Odt] 4 mg PO Q8HR PRN #12 tab.rapdis 02/26/22 Unknown Rx Allergies Allergy/AdvReac Type Severity Reaction Status Date / Time ciprofloxacin [From Cipro] Allergy Unknown Verified 11/26/20 07:06 ED Review of Systems ROS: Stated complaint: ABD PAIN/VOMITING Other details as noted in HPI Comment: All other systems reviewed and negative Constitutional: fever. denies: chills, diaphoresis, malaise, weakness ENT: denies: congestion Respiratory: denies: cough, shortness of breath, SOB with exertion, SOB at rest, stridor, wheezing Cardiovascular: denies: chest pain, palpitations, dyspnea on exertion, ortho pnea, edema, syncope, paroxysmal nocturnal dyspnea Gastrointestinal: abdominal pain, nausea, vomiting, diarrhea. denies: hematemesis, melena, hematochezia Genitourinary: dysuria. denies: urgency, frequency, hematuria, discharge, abnormal menses, dyspareunia Musculoskeletal: denies: back pain Skin: denies: rash, lesions Neurological: denies: headache, weakness, numbness, paresthesias, vertigo ED Past Medical Hx - Past Medical History Additional medical history: heart disease - Social History Smoking Status: Never Smoker Substance Use Type: None - Medications Home Medications: Home Medications Medication Instructions Recorded Confirmed Last Taken Type Metoprolol Succinate [Toprol Xl] 25 mg PO DAILY #30 tab.er.24h 11/27/20 Unknown Rx Acetaminophen/Codeine [Tylenol 1 tab PO Q6H PRN #12 tab 02/26/22 Unknown Rx /Codeine # 3 tab] Ondansetron [Zofran Odt] 4 mg PO Q8HR PRN #12 tab.rapdis 02/26/22 Unknown Rx ED Physical Exam - General Limitations: No Limitations General appearance: alert, in no apparent distress - Head Head exam: Present: atraumatic, normocephalic - Eye Eye exam: Present: normal appearance. Absent: conjunctival injection - Neck Neck exam: Present: normal inspection, full ROM. Absent: tenderness, lymphadenopathy - Respiratory Respiratory exam: Present: normal lung sounds bilaterally. Absent: respiratory distress, wheezes, rales, rhonchi, stridor, chest wall tenderness - Cardiovascular Cardiovascular Exam: Present: regular rate, normal heart sounds - GI/Abdominal GI/Abdominal exam: Present: soft, tenderness (Generalized), normal bowel sounds, other (Ileostomy bag intact to right lower abdomen noted to have brown se miliquid stool). Absent: distended, guarding, rebound, rigid - Extremities Exam Extremities exam: Present: normal inspection, full ROM, normal capillary refill. Absent: pedal edema, joint swelling, calf tenderness ( ) - Back Exam Back exam: Present: normal inspection. Absent: tenderness, CVA tenderness (R), CVA tenderness (L), vertebral tenderness - Neurological Exam Neurological exam: Present: alert, oriented X3, normal gait - Psychiatric Psychiatric exam: Present: normal affect, normal mood - Skin Skin exam: Present: warm, dry, intact, normal color ED Course Vital Signs 02/26/22 02/26/22 10:41 14:10 Temperature 98 F 98.2 F Pulse Rate 70 81 Respiratory 16 20 Rate Blood Pressure 111/57 130/85 [Left] O2 Sat by Pulse 100 99 Oximetry ED Medical Decision Making - Lab Data Result diagrams: 02/26/22 14:27 02/26/22 14:27 - Radiology Data Radiology results: report reviewed CT abdomen and pelvis without contrast: FINDINGS: LOWER CHEST: No significant abnormality of the imaged chest. LIVER: No focal lesion. No acute findings. GALLBLADDER: Cholelithiasis without CT evidence of cholecystitis. BILE DUCTS: Not well visualized SPLEEN: No significant abnormality. PANCREAS: No significant abnormality. ADRENALS: No significant abnormality. KIDNEYS/URETERS: No stones or hydronephrosis. No solid renal lesion. STOMACH / DUODENUM / SMALL BOWEL: The stomach, duodenum, and small bowel demonstrate no significant abnormality. No specific abnormality of the mesentery demonstrated. Ileostomy right lower quadrant. COLON: Prior colon resection with pelvic rectal anastomosis. APPENDIX: Absent PERITONEUM: No free air or free fluid are present within the abdomen or pelvis. LYMPH NODES: No significant adenopathy. AORTA / ARTERIES: No significant abnormality. IVC / VEINS: No significant abnormality. URINARY BLADDER: No significant abnormality. REPRODUCTIVE ORGANS: Uterus is absent. No significant adnexal abnormality. ADDITIONAL ABDOMINAL/PELVIC FINDINGS: None. SKELETAL SYSTEM: Osteopenia. Multilevel facet arthropathy mid and lower lumbar spine. Grade 1 anterolisthesis of L3 on L4. IMPRESSION: 1. No specific evidence of bowel obstruction. No acute intra- abdominal/intrapelvic pathology. - Medical Decision Making 61-year-old black female with a past medical history of Crohn's disease and SVT presents to the emergency department for evaluation of 1 week history of abdominal pain with nausea, vomiting, and diarrhea. She states that about a month ago she was diagnosed with acute pancreatitis but states that pain got better but 1 week ago she started to have pain again which has gotten progressively worse. She states that she has also had intermittent fever and dysuria. She denies any vaginal discharge. She states that pain is 8 out of 10 and has become persistent. No gross abnormalities noted on labs or urine. CT abdomen and pelvis without any acute abnormalities noted. Pain and nausea mostly resolved after medication. Patient will be discharged home with Zofran and Tylenol 3 to take as needed for pain and nausea. She is advised to follow-up with her jaime roenterologist or return to the emergency department for any concerning symptoms. She verbalizes understanding of and agreement with plan of care. Critical care attestation.: If time is entered above; I have spent that time in minutes in the direct care of this critically ill patient, excluding procedure time. ED Disposition Clinical Impression: History of Crohn's disease Abdominal pain Qualifiers: Abdominal location: generalized Qualified Code(s): R10.84 - Generalized abdominal pain Disposition: HOME / SELF CARE / HOMELESS Is pt being admited?: No Does the pt Need Aspirin: No Condition: Stable Instructions: Abdominal Pain, Adult, [id number], Crohn's Disease, Abdominal Pain (ED) Additional Instructions: Take medications as prescribed. Follow-up with primary care provider or GI doctor if no improvement or worsening symptoms. Return to the emergency department as needed. Prescriptions: Acetaminophen/Codeine [Tylenol /Codeine # 3 tab] 1 tab PO Q6H PRN #12 tab PRN Reason: Pain , Severe (7-10) Ondansetron [Zofran Odt] 4 mg PO Q8HR PRN #12 tab.rapdis PRN Reason: Nausea And Vomiting Referrals: PRAKASH MATT MD [Staff Physician] - 3-5 Days Time of Disposition: 15:55
== END 2022-02-26 16:29 | disposition home or self-care (01) ==
LOC: ED 09:51
DX: R30.0 Dysuria (principal); R10.9 Unspecified abdominal pain; K50.90 Crohn's disease, unspecified, without complications; Z91.09 Other allergy status, other than to drugs and biological substances; Z79.899 Other long term (current) drug therapy
CPT/HCPCS: 36415; 74176; 80053; 81001; 83690; 85027; 96372; 96374; 96375; 99284; J2270; J2405